=== PATIENT | female | born 1995 | race Caucasian/White ===

== ENCOUNTER → 2018-10-09 | Outpatient (CLI) | payer OTHER ==
--- NOTE | 2018-10-10 08:00 | US ---
EXAMINATION TYPE: US transvaginal DATE OF EXAM: 10/09/2018 COMPARISON: NONE CLINICAL HISTORY: R10.2 PELVIC PAIN. Right-sided pelvic pain x 1 week. Hx ovarian cysts. . TECHNIQUE: Transvaginal (TV). Date of LMP: 09/18/2018 EXAM MEASUREMENTS: Uterus: 7.0 x 4.8 x 3.6 cm Endometrial Stripe: 0.88 cm. Possible fluid in endometrium, Anterior Endo: 0.24 cm. Posterior Endo: 0 .42 cm. Right Ovary: 5.7 x 5.5 x 4.2 cm Left Ovary: 3.1 x 1.7 cm 1. Uterus: Anteverted Small anechoic areas seen in JAYME. 2. Endometrium: Hypoechoic area seen in upper endometrium measurin.2 x 0.9 x 0.4 cm. 3. Right Ovary: Hypoechoic area seen measurin.5 x 4.8 x 3.8 cm. 4. Left Ovary: Anechoic areas seen. Largest: 0.7 x 0.9 x 0.6 cm. 5. Bilateral Adnexa: appears wnl 6. Posterior cul-de-sac: Fluid seen Vascular flow is seen to the right and left ovaries. Doppler waveform analysis was not performed. IMPRESSION: 1. Enlarged right ovary with size predisposing the ovary to torsion. Given this patient's right-sided pelvic pain for one week and ovary noted to the right of midline the patient should return for arter ial and venous waveforms/Doppler ultrasound. 2. Complex right ovarian lesion measuring up to 4.5 cm that likely represents either a hemorrhagic ov tan cyst or endometrioma. Follow-up in 3 menstrual cycles is recommended to evaluate for resolution . This persists endometrioma would be more likely. 3. Numerous peripherally oriented follicles on the left can be seen in PCL assess. Correlate with cli nical symptoms and serum laboratory values. 4. Heterogenous endometrium may relate to the phase of menses. This can also be reassessed on the fol low-up exam as recommended above. A [place] level critical message alert has been initiated for Gretchen Sandoval DO via the [employer] Critical Results System on 10/10/2018 7:57 AM. This message alert has been sent to Gretchen leavitt DO via the preferences provided by the clinician for the receipt of Radiology Critical Findings. Kecia essage ID [id number].
== END | disposition home or self-care (01) ==
LOC: RADUSWWP 16:54
PROVIDERS: ATTEND Obstetrics & Gynecology Obstetrics
DX: N83.8 Other noninflammatory disorders of ovary, fallopian tube and broad ligament (principal); N80.9 Endometriosis, unspecified
CPT/HCPCS: 76830